=== PATIENT | female | born 1970 | race Two or more races ===

== ENCOUNTER 2018-03-05 11:23 | Emergency (ER) | payer OTHER ==
[2018-03-05 12:12] VITALS: BP 116/45; PULSE 55; TEMP 98.4; BMI 27.4
[2018-03-05 12:44] LABS: URINE APPEARANCE CLEAR; URINE BILIRUBIN NEGATIVE (<2.0 mg/dL); URINE COLOR STRAW; URINE GLUCOSE (UA) NEGATIVE (NEGATIVE); URINE KETONE NEGATIVE (NEGATIVE); URINE LEUK ESTERASE 3+ (NEGATIVE); URINE NITRITE NEGATIVE (NEGATIVE); URINE PROTEIN NEGATIVE (NEGATIVE); URINE UROBILINOGEN NEGATIVE mg/dL (0.2-1.0)
--- NOTE | 2018-03-05 12:46 | PDOC ---
History of Present Illness - General Chief Complaint: Urinary Problem Stated Complaint: URINARY PROBLEM Time Seen by Provider: 03/05/18 12:25 History Source: Patient Exam Limitations: No Limitations - History of Present Illness Travel History: No Initial Comments: 03/05/18 12:41 47 y/o female presents to ED with complaints of urinary frequency urgency along mild superpubic pressure upon urination for the past 2 days. Patient states has had UTIs in the past and describes similar symptoms. Patient denies back pain, fever, chills or nausea. Patient denies irregular menses. Timing/Duration: reports: intermittent Quality: reports: mild, other Abdominal Pain Onset Location: reports: suprapubic Pain Radiation: reports: no radiation Activities at Onset: reports: none Aggravating Factors: improves with: Voiding Alleviating Factors: improves with: Voiding Past History - Travel Traveled outside of the country in the last 30 days: No - Past Medical History Allergies/Adverse Reactions: Allergies Allergy/AdvReac Type Severity Reaction Status Date / Time No Known Allergies Allergy Verified 03/05/18 12:12 Home Medications: Ambulatory Orders Nitrofurantoin Monohyd/M-Cryst [Macrobid -] 100 mg PO BID #14 capsule 03/05/18 Phenazopyridine HCl [Pyridium] 200 mg PO TID #6 tablet 03/05/18 COPD: No DVT: No Dementia: No - Reproductive History Cervical CA: No Dysfunctional Uterine Bleeding: No Ectopic : No Endometrial CA: No Polycystic Ovaries: No Tubal Ligation: No - Immunization History Immunization Up to Date: Yes - Suicide/Smoking/Psychosocial Hx Smoking Status: No Smoking History: Current every day smoker Have you smoked in the past 12 months: Yes Number of Cigarettes Smoked Daily: 3 Information on smoking cessation initiated: No 'Breaking Loose' booklet given: 12/26/15 Hx Alcohol Use: Yes Drug/Substance Use Hx: No Substance Use Type: None Patient Lives Alone: No Lives with/in: spouse/SO Review of Systems - Review of Systems Able to Perform ROS?: No Constitutional: No: Symptoms Reported HEENTM: No: Symptoms Reported Respiratory: No: Symptoms reported Cardiac (ROS): No: Symptoms Reported : Yes: Dysuria, Frequency, Urgency. No: Flank Pain, Hematuria Musculoskeletal: No: Symptoms Reported Integumentary: No: Symptoms Reported Endocrine: No: Symptoms Reported Hematologic/Lymphatic: No: Symptoms Reported *Physical Exam - Vital Signs Last Vital Signs Temp Pulse Resp BP Pulse Ox 98.4 F 55 L 16 116/45 L 100 03/05/18 12:09 03/05/18 12:09 03/05/18 12:09 03/05/18 12:09 03/05/18 12:09 - Physical Exam General Appearance: Yes: Nourished, Appropriately Dressed. No: Apparent Distress Neck: positive: Supple Respiratory/Chest: positive: Lungs Clear, Normal Breath Sounds. negative: Respiratory Distress, Accessory Muscle Use Cardiovascular: positive: Regular Rhythm, Regular Rate. negative: Murmur Gastrointestinal/Abdominal: positive: Soft, Tenderness (midsuprapubic) Musculoskeletal: negative: CVA Tenderness Integumentary: positive: Normal Color, Warm, Moist Neurologic: positive: Motor Strength 5/5 (ambulatory) Medical Decision Making - Medical Decision Making 03/05/18 12:49 CC: urinary complaints with frequency x 3 days Exam: no cva or suprapubic tenderness Plan: Ua U cx 03/05/18 13:24 Laboratory Tests 03/05/18 12:26 Ur Specific Drury 1.004 L Ur Leukocyte Esterase 3+ H Urine WBC (Auto) 6 Patient would've for Macrobid and Pyridium *DC/Admit/Observation/Transfer Diagnosis at time of Disposition: UTI (lower urinary tract infection) - Discharge Dispostion Disposition: HOME Condition at time of disposition: Good - Prescriptions Prescriptions: Nitrofurantoin Monohyd/M-Cryst [Macrobid -] 100 mg PO BID #14 capsule Phenazopyridine HCl [Pyridium] 200 mg PO TID #6 tablet - Referrals Referrals: Yuli Fonseca MD [Primary Care Provider] - - Patient Instructions Printed Discharge Instructions: DI for Urinary Tract Infection (UTI) Additional Instructions: Please take antibiotics and medication as prescribed. Please treat at least 2 L of water daily basis for the next few days help flush your system out. Please clean from front to back. If symptoms do not improve over the next few days you may follow up with your primary care doctor or return to the ED. - Post Discharge Activity
[2018-03-05 13:19] LABS: EPI CELLS RARE /HPF (FEW); URINE BACTERIA RARE /hpf (NONE SEEN)
== END 2018-03-05 13:28 | disposition home or self-care (01) ==
LOC: JERFT 11:23
DX: N39.0 Urinary tract infection, site not specified (principal); F17.210 Nicotine dependence, cigarettes, uncomplicated
CPT/HCPCS: 81003; 81015; 87086; 87186; 99281-25

== ENCOUNTER 2021-03-07 18:49 | Emergency (ER) | payer OTHER ==
[2021-03-07 19:08] VITALS: BP 122/84; PULSE 98; TEMP 98; BMI 27.4
[2021-03-07] MEDS ORDERED: KETOROLAC TROMETHAMINE 30 MG/1 ML VIAL IM ONE (19:49)
[2021-03-07] MEDS ORDERED: LIDOCAINE 5% TOPICAL PATCH TP ONE (19:49)
[2021-03-07] MEDS ORDERED: KETOROLAC TROMETHAMINE 30 MG/1 ML VIAL ONE (20:11)
[2021-03-07] MEDS ORDERED: LIDOCAINE 5% TOPICAL PATCH ONE (20:11)
[2021-03-07] MEDS ORDERED: LIDOCAINE PATCH REMOVAL MC SCH (22:00)
== END 2021-03-07 21:20 | disposition home or self-care (01) ==
LOC: JER 18:49 → JERFT 18:49
PROC: 3E0233Z Introduction of Anti-inflammatory into Muscle, Percutaneous Approach (ICD-10-PCS; principal; 2021-03-07)
DX: M54.12 Radiculopathy, cervical region (principal)
CPT/HCPCS: 99284-25